=== PATIENT | male | born 1945 | race Caucasian/White ===

== ENCOUNTER 2017-04-13 21:11 | Emergency (ER) | payer BC, MEDICARE, OTHER ==
[~2017-04-13] VITALS: Ht 180.3 cm; Wt 126.1 kg
[~2017-04-13 21:11] MED LIST: ALPR0.5T6 PO; CALC-128 PO; CHOL10003 PO; CITA20TA5 PO; DICL75TA PO; FURO40TA4 PO; LABE300T PO; LEVO50TA5 PO; LISI40TA PO; MELO7.5T29 PO; MV-M1TAB34 PO; OMEG500C3 PO; OMEP40CA5 PO; PRAV40TA2 PO
[2017-04-13 21:48] VITALS: BP 137/72
[2017-04-13] MEDS ORDERED: NEOMY/BACITR/POLYMYXIN OINT PACKET. TP ONE (22:15)
--- NOTE | 2017-04-13 22:22 | PHYS DOC ---
Past Medical History Past Medical History: Depression, High Cholesterol, Hypertension, Hypothyroid, AL, Other Additional Past Medical Histor: prostate cancer Past Surgical History: Knee Replacement, Other Additional Past Surgical Histo: prostate surgery Alcohol Use: None Drug Use: None Adult General Chief Complaint Chief Complaint: KNEE INJURY HPI HPI Patient is a 71 year old male who presents with complaint of left knee pain. Patient states that he slipped while standing on the trailer of a semitruck a couple hours prior to arrival. Patient states that he had his left knee on the steel crossbar of the trailer that makes contact with the rear trailer door. Patient states that he has been having swelling and pain to the knee. Patient states that he has history of a left knee replacement and is concerned about the possibility of damage to the hardware which is why he came to the emergency department. Patient states that he has been able to bear weight on the affected knee. Patient states that the pain worsens when he bends his knee. Patient states that the pain as 7 out of 10 when bending his knee but states that it is 0 out of 10 currently with no movement. Patient is not on any blood thinners. Patient states he also suffered a mild abrasion to his left forearm but denies any other injuries. The pain and swelling are localized just below the knee joint on the top of the lower leg. Review of Systems Review of Systems Constitutional: Denies fever or chills [] Eyes: Denies change in visual acuity, redness, or eye pain [] Musculoskeletal: Left knee injury [] Integument: Denies rash or skin lesions [] Neurologic: Denies headache, focal weakness or sensory changes [] Current Medications Current Medications Current Medications Medications (Trade) Dose Ordered Sig/Fatmata Start Time Stop Time Status Last Admin Dose Admin Neomycin/ Polymyxin/ Bacitracin (Triple Antibiotic Ointment) 1 pkt 1X ONCE 04/13/17 22:15 04/13/17 22:16 DC Allergies Allergies Allergies Coded Allergies Type Severity Reaction Last Updated Verified No Known Drug Allergies 10/30/14 No Physical Exam Physical Exam Constitutional: Alert, obese, afebrile, no acute distress. [] HENT: Normocephalic, atraumatic, bilateral external ears normal, oropharynx moist, no oral exudates, nose normal. [] Skin: Warm, dry, no erythema, no rash. [] Extremities: Moderate soft tissue swelling along left anterior tibial plateau with tenderness to palpation, superficial abrasion present, range of motion not tested secondary to pain, superficial abrasion along the volar aspect of left mid forearm. [] Neurologic: Alert and oriented X 3, normal motor function, normal sensory function, no focal deficits noted. [] Current Patient Data Vital Signs Vital Signs Date Time Temp Pulse Resp B/P (MAP) Pulse Ox O2 Delivery O2 Flow Rate FiO2 04/13/17 21:48 98.1 78 16 94 Room Air 98.1 04/13/17 21:46 137/72 (93) EKG EKG Not performed [] Radiology/Procedures Radiology/Procedures 3 view x-ray series of left knee interpreted by me: No fractures, normal alignment of arthroplasty hardware, mild to moderate pretibial soft tissue swelling [] Course & Med Decision Making Course & Med Decision Making Pertinent Labs and Imaging studies reviewed. (See chart for details) Patient's abrasions were cleaned and dressed with nonadherent pads. X-rays negative. Advised continued use of Tylenol as needed for pain. Recommended RICE therapy for knee contusion. Recommended follow-up in one week if symptoms are not improving and return to emergency department for any worsening symptoms. Patient voiced understanding and in agreement with treatment plan. Dragon Disclaimer Dragon Disclaimer This electronic medical record was generated, in whole or in part, using a voice recognition dictation system. Departure Departure Impression: Primary Impression: Contusion of left knee Additional Impression: Forearm abrasion Disposition: HOME, SELF-CARE Condition: IMPROVED Referrals: ADELIA LUNDY (PCP) Patient Instructions: Abrasions, Contusion Additional Instructions: Follow-up in one week with your primary doctor if symptoms are not improving. Return to the emergency department for any worsening symptoms. Problem Qualifiers Primary Impression: Contusion of left knee Encounter type: initial encounter Qualified Codes: S80.02XA - Contusion of left knee, initial encounter Additional Impression: Forearm abrasion Encounter type: initial encounter Laterality: left Qualified Codes: S50.812A - Abrasion of left forearm, initial encounter VIOLET CORRALES MD Apr 13, 2017 22:22
--- NOTE | 2017-04-14 07:10 | RAD ---
Indication: Fall with left knee injury. Time of exam 2225 hours. 3 views of the left knee demonstrate postop changes of total knee arthroplasty. The prosthetic elements are in good position. No fracture or loosening is identified. No joint effusion is detected. Impression: No acute abnormality is detected.
== END 2017-04-13 23:21 | disposition home or self-care (01) ==
LOC: ER 21:11
DX: S80.02XA Contusion of left knee, initial encounter (principal); S50.812A Abrasion of left forearm, initial encounter; Z96.652 Presence of left artificial knee joint; E03.9 Hypothyroidism, unspecified; E78.00 Pure hypercholesterolemia, unspecified; F32.9 Major depressive disorder, single episode, unspecified; I10 Essential (primary) hypertension; I25.2 Old myocardial infarction; W01.0XXA Fall on same level from slipping, tripping and stumbling without subsequent striking against object, initial encounter; Y93.89 Activity, other specified; Y92.89 Other specified places as the place of occurrence of the external cause; Y99.8 Other external cause status
CPT/HCPCS: 73562; 99284